=== PATIENT | female | born 2000 | race Two or more races ===

== ENCOUNTER 2024-04-12 14:20 | Outpatient (CLI) | payer OTHER | END 2024-04-12 14:21 | disposition home or self-care (01) | LOC: PRENATAL 14:20 | PROVIDERS: ATTEND Obstetrics & Gynecology Maternal & Fetal Medicine | DX: O26.849 Uterine size-date discrepancy, unspecified trimester (principal); O36.8199 Decreased fetal movements, unspecified trimester, other fetus; Z3A.32 32 weeks gestation of pregnancy ==

== ENCOUNTER → 2025-07-04 | Emergency (ER) | payer OTHER ==
[~2025-07-04] VITALS: Ht 165.1 cm; Wt 49.4 kg
[~2025-07-04] MED LIST: DICLOFENAC SODI50 MG PO; KETOROLAC TROMETHAMINE 30 MG VIAL IM ONE; KETOROLAC TROMETHAMINE 30 MG VIAL ONE; NORFLEX100MG PO; ORPHENADRINE CITRATE 30 MG/ML AMPUL IM ONE; ORPHENADRINE CITRATE 30 MG/ML AMPUL ONE; SILVER SULFADIAZINE 50 GM JAR TOP ONE
== END ==
LOC: ER 10:25 → EMR PED 11:16
DX: S39.82XA Other specified injuries of lower back, initial encounter (principal); V49.88XA Car occupant (driver) (passenger) injured in other specified transport accidents, initial encounter; Y93.89 Activity, other specified; Y92.89 Other specified places as the place of occurrence of the external cause; Y99.8 Other external cause status; M54.50 Low back pain, unspecified